=== PATIENT | male | born 1945 | race Caucasian/White ===

== ENCOUNTER → 2018-05-07 12:00 | Outpatient (CLI) | payer MEDICARE, SELFPAY ==
[2018-05-07 10:30] LABS: D Dimer < 200 ng/mL (<230)
== END ==
PROVIDERS: Visit Provider Physician Assistant
DX: M79.605 Pain in left leg (principal)
CPT/HCPCS: 36415; 85379

== ENCOUNTER 2023-05-31 12:32 | Emergency (ER) | payer MEDICARE, SELFPAY ==
[2023-05-31 12:48] VITALS: BP 139/65; PULSE 54; RESP 18; TEMP 36.7; O2SAT 100; BMI 23.0
--- NOTE | 2023-05-31 12:57 | DI.RAD.S_ITS ---
PROCEDURE: XR CHEST 1V INDICATIONS: chest pain TECHNIQUE: One view of the chest was acquired. COMPARISON: None. FINDINGS: Surgical changes and devices: None. Lungs and pleura: Lungs are clear. No pleural effusions or pneumothorax. Lungs hyperinflated suggesting COPD. Mediastinum: Mediastinal contours appear normal. Heart is enlarged. Bones and chest wall: No suspicious bony lesions. Overlying soft tissues appear unremarkable. IMPRESSION: No acute cardiopulmonary disease process. Dictated by: Lizbeth Dong MD, PhD on 05/31/2023 at 13:16 Approved by: Lizbeth Dong MD, PhD on 05/31/2023 at 13:18
[2023-05-31 13:13] LABS: Add Manual Diff / Slide Review NO; Basophils Absolute Auto 0 /uL (0-100); Basophils Percent Auto 0.7 % (0-2); Eosinophils Absolute Auto 200 /uL (0-450); Eosinophils Percent Auto 3.4 % (2-4); Hematocrit 38.3 % (41-53); Hemoglobin 13.2 g/dL (13.5-17.5); Lymphocytes Absolute Auto 1400 /uL (1100-4500); Lymphocytes Percent Auto 28.4 % (25-40); Mean Corpuscular HGB Conc 34.3 % (30-36); Mean Corpuscular Hemoglobin 32.2 PG (26-34); Mean Corpuscular Volume 93.8 fL (80-100); Monocytes Absolute Auto 400 /uL (0-900); Monocytes Percent Auto 8.7 % (3-14); Neutrophils Absolute Auto 3000 /uL (1500-7000); Neutrophils Percent Auto 58.8 % (50-75); Platelet Count 149 X10^3/uL (150-400); Red Blood Cell Count 4.09 X10^6/uL (4.5-5.9); Red Cell Distribution Width 13.5 % (11.6-14.8)
[2023-05-31 13:20] LABS: INR 1.1 (0.9-1.3)
[2023-05-31 13:22] LABS: PTT Partial Thromboplastin Tim 29 SECONDS (26-36)
[2023-05-31 13:28] LABS: Alanine Aminotransferase 29 IU/L (<50); Albumin Globulin Ratio 1.7 (1.0-2.8); Alkaline Phosphatase 50 U/L (38-126); Aspartate Aminotransferase 35 IU/L (17-59); BUN Creatinine Ratio 20.8 (6-22); Bilirubin Total 0.4 mg/dL (0.2-1.3); Blood Urea Nitrogen 16 mg/dL (9-20); Calcium 8.8 mg/dL (8.4-10.2); Carbon Dioxide 28 mmol/L (22-32); Chloride 103 mmol/L (98-107); Creatine Kinase 113 U/L (55-170); Estimated Glomerular Filt Rate > 60 mL/min (>60); Globulin 2.4 g/dL (1.7-4.1); Glucose 86 mg/dL (80-110); HEMOLYSIS < 15 (0-50); Lipase 86 U/L (23-300); Magnesium 2.1 mg/dL (1.6-2.3); Potassium 4.3 mmol/L (3.4-5.1); Sodium 136 mmol/L (137-145); Total Protein 6.4 g/dL (6.3-8.2)
[2023-05-31 13:40] LABS: Troponin I < 0.012 ng/mL (0.01-0.034)
--- NOTE | 2023-05-31 14:21 | PC.NURSE ---
Patient apple watch has been waking him up intermittently with low heart rate in 30's. Here today sinus bradycardia in 50's, patient states it is his baseline. . Patient denies chest pain, SOB or symptoms at time of watch alarm. Called [address] in [place] and asked to come in for evaluation.
[2023-05-31 14:23] VITALS: BP 153/72; PULSE 51; RESP 12; O2SAT 98
--- NOTE | 2023-06-06 18:13 | ED_ITS ---
HPI - Arrhythmia/Palpitations <Ramesh Rose PA-C - Last Filed: 06/06/23 18:33> General Chief Complaint: Arrhythmia/Palpitations Stated Complaint: Low BPM Time Seen by Provider: 05/31/23 14:12 Source: patient Mode of arrival: Ambulatory History of Present Illness HPI narrative: 78-year-old male presents to the ED for sporadic drops in heart rate during sleep over the last several days. Patient states that his Apple watch has been alerting him to a low heart rate of 38-39 beats per minute for periods of about 10 minutes sporadically. This only happens when he is asleep. Patient lives in [place], is here over the summer. Patient sees a call out clerk in [place]. Patient called his call out clerk, who recommended him to come to the ED for further evaluation. Patient denies fever, chills, chest pain, shortness of breath. Patient denies that he has any sleep apnea. Patient has a history of AFib with ablation in 2010. Patient has a low heart rate at baseline, states that he has been pretty healthy and fit. Related Data Home Medications Medication Instructions Recorded Confirmed atorvastatin 10 mg tablet (Lipitor) 10 mg PO DAILY 05/07/18 05/07/18 valsartan 40 mg tablet 40 mg PO BID 05/07/18 05/07/18 Allergies Allergy/AdvReac Type Severity Reaction Status Date / Time Penicillins AdvReac rash Verified 05/07/18 09:38 Review of Systems <Ramesh Rose PA-C - Last Filed: 06/06/23 18:33> Review of Systems ROS Unobtainable: All systems reviewed & are unremarkable except as noted in HPI and below Constitutional Constitutional: Denies chills, Denies fatigue, Denies fever(s), Denies frequent falls, Denies lethargy and Denies weakness Eyes Eyes: Denies change in vision, Denies eye discharge, Denies irritation and Denies loss of vision ENT Ears, Nose, Mouth, and Throat: Denies change in voice, Denies dizziness, Denies neck pain, Denies sore throat and Denies throat swelling Cardiovascular Cardiovascular: Denies chest pain, Denies irregular heart rhythm, Denies lightheadedness, Denies palpitations, Denies dyspnea, Denies dyspnea on exertion and Denies orthopnea Comments: Bradycardia Respiratory Respiratory: Denies cough, Denies dyspnea, Denies dyspnea on exertion and Denies wheezing Gastrointestinal Gastrointestinal: Denies abdominal pain, Denies change in bowel habits, Denies diarrhea, Denies nausea and Denies vomiting Genitourinary Genitourinary: Denies hematuria, Denies flank pain, Denies urinary incontinence and Denies urinary urgency Musculoskeletal Musculoskeletal: Denies back pain, Denies muscle weakness, Denies neck pain, Denies numbness and Denies tingling Integumentary/Breasts Skin/Breast: Denies pruritus, Denies erythema, Denies rash and Denies wounds Neurologic Neurologic: Denies behavioral changes, Denies confusion, Denies dizziness, Denies frequent falls, Denies loss of vision, Denies numbness, Denies tingling and Denies weakness Psychiatric Psychiatric: Denies anxiety, Denies behavioral changes, Denies confusion, Denies depression, Denies homicidal ideation and Denies suicidal ideation Endocrine Endocrine: Denies fatigue, Denies flushing and Denies palpitations Hematologic/Lymphatic Hematologic/Lymphatic: Denies easy bruising Allergic/Immunologic Allergic/Immunologic: Denies urticaria, Denies throat swelling and Denies wheezing Patient History <Ramesh Rose PA-C - Last Filed: 06/06/23 18:33> Social History Smoking Status: Former smoker alcohol intake: current Smoking Status: Former smoker alcohol intake frequency: 0-2 drinks per day Substance Use Type: does not use Exam <Ramesh Rose PA-C - Last Filed: 06/06/23 18:33> Narrative Exam Narrative: Const General:?cooperative, healthy appearing and comfortable [facility] Head:?normal to inspection Ears:?hearing grossly normal bilaterally Nose:?external nose normal Face and sinus:?normal facial exam and sinuses nontender Mouth:?oral mucosae normal Throat:?posterior oropharynx normal Eyes General:?appearance normal, both eyes and all related structures Neck Neck:?normal visual inspection and no lymphadenopathy noted Resp Effort & Inspection:?normal respiratory effort Auscultation:?clear to auscultation bilaterally Cardio Rate:? Bradycardia Rhythm:?regular rhythm Neuro General:?patient alert, patient awake and patient oriented x3 Initial Vital Signs Initial Vital Signs: Vital Signs Temperature 98.1 F 05/31/23 12:48 Pulse Rate 54 L 05/31/23 12:48 Respiratory Rate 18 05/31/23 12:48 Blood Pressure 139/65 05/31/23 12:48 Pulse Oximetry 100 05/31/23 12:48 Oxygen Delivery Method Room Air 05/31/23 12:48 <Mily Velázquez DO - Last Filed: 06/19/23 05:08> Initial Vital Signs Initial Vital Signs: Vital Signs Temperature 98.1 F 05/31/23 12:48 Pulse Rate 54 L 05/31/23 12:48 Respiratory Rate 18 05/31/23 12:48 Blood Pressure 139/65 05/31/23 12:48 Pulse Oximetry 100 05/31/23 12:48 Oxygen Delivery Method Room Air 05/31/23 12:48 MDM - Arrhythmia/Palpitations <Ramesh Rose PA-C - Last Filed: 06/06/23 18:33> Lab Data 05/31/23 13:02 05/31/23 13:02 Labs: Lab Results 05/31/23 05/31/23 05/31/23 Range/Units 13:02 13:02 13:02 WBC 5.0 (4.5-11.0) X10^3/uL RBC 4.09 L (4.5-5.9) X10^6/uL Hgb 13.2 L (13.5-17.5) g/dL Hct 38.3 L (41-53) % MCV 93.8 (80-100) fL MCH 32.2 (26-34) PG MCHC 34.3 (30-36) % RDW 13.5 (11.6-14.8) % Plt Count 149 L (150-400) X10^3/uL Neut % (Auto) 58.8 (50-75) % Lymph % (Auto) 28.4 (25-40) % Whitman % (Auto) 8.7 (3-14) % Eos % (Auto) 3.4 (2-4) % Baso % (Auto) 0.7 (0-2) % Neut # (Auto) 3000 (2372-4055) /uL Lymph # (Auto) 1400 (4632-6635) /uL Whitman # (Auto) 400 (0-900) /uL Eos # (Auto) 200 (0-450) /uL Baso # (Auto) 0 (0-100) /uL PT 13.0 H (10.1-12.7) SECONDS INR 1.1 (0.9-1.3) APTT 29 (26-36) SECONDS Sodium 136 L (137-145) mmol/L Potassium 4.3 (3.4-5.1) mmol/L Chloride 103 (98-107) mmol/L Carbon Dioxide 28 (22-32) mmol/L BUN 16 (9-20) mg/dL Creatinine 0.77 (0.66-1.25) mg/dL Estimated GFR > 60 (>60) mL/min BUN/Creatinine Ratio 20.8 (6-22) Glucose 86 (80-110) mg/dL Calcium 8.8 (8.4-10.2) mg/dL Magnesium 2.1 (1.6-2.3) mg/dL Total Bilirubin 0.4 (0.2-1.3) mg/dL AST 35 (17-59) IU/L ALT 29 (<50) IU/L Alkaline Phosphatase 50 (38-126) U/L Total Creatine Kinase 113 (55-170) U/L Troponin I < 0.012 (0.01-0.034) ng/mL Total Protein 6.4 (6.3-8.2) g/dL Albumin 4.0 (3.5-5.0) g/dL Globulin 2.4 (1.7-4.1) g/dL Albumin/Globulin Ratio 1.7 (1.0-2.8) Lipase 86 (23-300) U/L MDM Narrative Medical decision making narrative: 78-year-old male presents to the ED for sporadic drops in heart rate during sleep over the last several days. Concern for arrhythmias versus ACS versus heart block versus other. Obtained chest x-ray, EKG, labs, troponin with no acute findings. Recommend follow-up with call out clerk for further evaluation. ED return precautions discussed with patient. Patient verbalized understanding. Medical records reviewed: Yes <Mily Velázquez DO - Last Filed: 06/19/23 05:08> Lab Data Labs: Lab Results 05/31/23 05/31/23 05/31/23 Range/Units 13:02 13:02 13:02 WBC 5.0 (4.5-11.0) X10^3/uL RBC 4.09 L (4.5-5.9) X10^6/uL Hgb 13.2 L (13.5-17.5) g/dL Hct 38.3 L (41-53) % MCV 93.8 (80-100) fL MCH 32.2 (26-34) PG MCHC 34.3 (30-36) % RDW 13.5 (11.6-14.8) % Plt Count 149 L (150-400) X10^3/uL Neut % (Auto) 58.8 (50-75) % Lymph % (Auto) 28.4 (25-40) % Whitman % (Auto) 8.7 (3-14) % Eos % (Auto) 3.4 (2-4) % Baso % (Auto) 0.7 (0-2) % Neut # (Auto) 3000 (5167-8532) /uL Lymph # (Auto) 1400 (0114-0003) /uL Whitman # (Auto) 400 (0-900) /uL Eos # (Auto) 200 (0-450) /uL Baso # (Auto) 0 (0-100) /uL PT 13.0 H (10.1-12.7) SECONDS INR 1.1 (0.9-1.3) APTT 29 (26-36) SECONDS Sodium 136 L (137-145) mmol/L Potassium 4.3 (3.4-5.1) mmol/L Chloride 103 (98-107) mmol/L Carbon Dioxide 28 (22-32) mmol/L BUN 16 (9-20) mg/dL Creatinine 0.77 (0.66-1.25) mg/dL Estimated GFR > 60 (>60) mL/min BUN/Creatinine Ratio 20.8 (6-22) Glucose 86 (80-110) mg/dL Calcium 8.8 (8.4-10.2) mg/dL Magnesium 2.1 (1.6-2.3) mg/dL Total Bilirubin 0.4 (0.2-1.3) mg/dL AST 35 (17-59) IU/L ALT 29 (<50) IU/L Alkaline Phosphatase 50 (38-126) U/L Total Creatine Kinase 113 (55-170) U/L Troponin I < 0.012 (0.01-0.034) ng/mL Total Protein 6.4 (6.3-8.2) g/dL Albumin 4.0 (3.5-5.0) g/dL Globulin 2.4 (1.7-4.1) g/dL Albumin/Globulin Ratio 1.7 (1.0-2.8) Lipase 86 (23-300) U/L ECG Data Attestation: I personally reviewed and interpreted this ECG as follows: Prior ECG tracings: not available for review Interpretation: Sinus bradycardia rate of 50 ID [id number] QRS of [address]TC [address] No acute ST elevation noted or depression noted. Discharge Plan Departure Patient Disposition: Home Clinical Impression: Bradycardia Instructions: DI for Bradycardia Activity Restrictions/Additional Instructions: You were evaluated in the ED today for a lower than normal heart rate. It appears that you have a lower heart rate at baseline, and that your heart rate has been dipping sporadically during sleep. It is reassuring that your workup today in the ED was normal. Your chest x-ray, EKG, labs were all normal. Please follow-up with your call out clerk for further evaluation and possibly cardiac monitoring. Please return to the ED if you experience chest pain, shortness of breath, worsening symptoms. Prescriptions: No Action atorvastatin [Lipitor] 10 mg tablet 10 mg PO DAILY valsartan 40 mg tablet 40 mg PO BID Referrals: Kodi Lane MD [Primary Care Provider] - Stand Alone Forms: Patient Portal/API <Mily Velázquez DO - Last Filed: 06/19/23 05:08> Cosign ED Attending Damienature Attestation: I was immediately available in the department for consultation. Documentation has been reviewed. Case was discussed. Agree with plan.
== END 2023-05-31 14:25 | disposition home or self-care (01) ==
PROVIDERS: Emergency Medicine; Emergency Provider Student in an Organized Health Care Education/Training Program; PCP Student in an Organized Health Care Education/Training Program
DX: R00.1 Bradycardia, unspecified (principal); R07.9 Chest pain, unspecified
CPT/HCPCS: 36415; 71045; 80053; 82550; 83690; 83735; 84484; 85025; 85610; 85730; 93005; 93010; 99283; 99284

== ENCOUNTER → 2023-06-08 12:37 | Outpatient (CLI) | payer MEDICARE, SELFPAY ==
--- NOTE | 2023-06-08 | DI.MRI.S_ITS ---
PROCEDURE: MR SHOULDER RT WO CON INDICATIONS: Pain in right shoulder TECHNIQUE: Noncontrast oblique coronal T2 fast spin echo with fat saturation, oblique sagittal T1 spin echo and T2 fast spin echo with fat saturation, axial T1 spin echo and T2 fast spin echo with fat saturation through the shoulder. COMPARISON: [facility], CR, XR SHOULDER 2+ VIEWS RIGHT, 05/05/2023, 16:13. FINDINGS: Image quality: Excellent. Rotator cuff: There is full-thickness tearing of the supraspinatus tendon and the anterior fibers of the infraspinatus tendon measuring approximately 2 cm in anterior-posterior dimension with up to 2.0 cm of proximal tendon retraction. Mild atrophy and grade 2 fatty infiltration of the supraspinatus and infraspinatus muscles. The teres minor tendon is intact. There is low-grade partial articular sided tearing of the subscapularis tendon at the distal insertion. Bones and bursae: Osseous irregularity is seen at the included portion of the scapular body that is most likely related to remote prior trauma. No associated osseous edema is seen. Portions of the included left-sided ribs also appear irregular. Partial-thickness cartilage irregularity is seen in the glenohumeral joint. There are moderate degenerative changes at the acromioclavicular joint with subchondral edema, subchondral cystic changes, marginal osteophyte formation, and a few small osseous fragments adjacent to the joint that may be related to degenerative changes or prior trauma. There is a small amount of fluid in the subacromial/subdeltoid bursa communicates with the glenohumeral joint space. Capsule and soft tissues: There is diffuse labral degeneration. Chronic nondisplaced tearing is seen at the posterior and inferior labrum. The proximal biceps long head tendon demonstrates mild tendinosis. There is effacement of the normal fat signal in the rotator interval. The glenohumeral ligaments appear to be intact. IMPRESSION: 1. Full-thickness tearing of the supraspinatus tendon and the anterior infraspinatus tendon measuring 2 cm in anterior-posterior dimension with 2 cm of proximal tendon retraction. Mild atrophy and grade 2 fatty infiltration of the supraspinatus and infraspinatus muscles. 2. Low-grade partial articular sided tearing of the subscapularis tendon at the distal insertion superimposed on chronic tendinosis. 3. Mild proximal biceps long head tendinosis. 4. Mild chondromalacia in the glenohumeral joint. Chronic nondisplaced tearing of the posterior and inferior labrum. 5. Moderate acromioclavicular joint osteoarthrosis. 6. Small subacromial/subdeltoid bursal effusion communicates with the glenohumeral joint space. 7. Chronic appearing osseous irregularity in the body of the scapula and in some of the included right-sided ribs are most likely related to remote prior trauma. No associated osseous edema is seen. Approved by: Amaury Laureano M.D. on 06/09/2023 at 9:39
== END ==
PROVIDERS: PCP Student in an Organized Health Care Education/Training Program; Referring Provider Orthopaedic Surgery; Visit Provider Orthopaedic Surgery
DX: M75.121 Complete rotator cuff tear or rupture of right shoulder, not specified as traumatic (principal); S43.491A Other sprain of right shoulder joint, initial encounter; M19.011 Primary osteoarthritis, right shoulder; M94.211 Chondromalacia, right shoulder; M25.511 Pain in right shoulder
CPT/HCPCS: 73221